=== PATIENT | female | born 1970 | race Caucasian/White ===

== ENCOUNTER → 2016-11-26 | Outpatient (REF) ==
--- NOTE | 2016-11-27 02:49 | REP ---
Clinical: Pain and disability. Technique: AP, lateral, bilateral oblique and sunrise views. Findings: Advanced tricompartmental osteoarthritic degenerative changes are appreciated. Findings include osteophytosis, subchondral sclerosis/heterogeneity, joint space narrowing, and small periarticular calcifications primarily noted on lateral and sunrise views. Small amount of chondrocalcinosis are also suggested. No effusion. No obvious acute fracture or dislocation. Impression: Advanced tricompartmental osteoarthritic degenerative changes. No acute fracture or dislocation. Signed by Heriberto Islas MD 11/27/2016 02:40 A
== END ==
LOC: M SMT 10:50
PROVIDERS: ATTEND Internal Medicine
DX: Z02.1 Encounter for pre-employment examination (principal)